=== PATIENT | male | born 1940 | race Caucasian/White ===

== ENCOUNTER → 2017-04-11 | Outpatient (CLI) | payer MEDICARE ==
[~2017-04-11] MED LIST: ACIP20TA19 PO; BETH25TA PO; CYMB30CA PO; DOXY100T PO; HYDR10SO PO; NAPR250T PO; TERA10CA3 PO
[2017-04-11 09:10] LABS: HDL CHOLESTEROL 31.5 MG/DL (40.0-60.0); INDIRECT BILIRUBIN 0.5 MG/DL (0.0-0.8); TOTAL BILIRUBIN ADULT 0.6 MG/DL (0.2-1.0)
== END ==
LOC: CLAB 07:27
PROVIDERS: ATTEND Family Medicine
DX: I10 Essential (primary) hypertension (principal); E78.2 Mixed hyperlipidemia; G45.9 Transient cerebral ischemic attack, unspecified; Z68.31 Body mass index [BMI] 31.0-31.9, adult; Z79.899 Other long term (current) drug therapy
CPT/HCPCS: 36415; 80061; 80076; 82550

== ENCOUNTER → 2017-05-05 | Outpatient (CLI) | payer MEDICARE ==
[~2017-05-05] MED LIST changes: -ACIP20TA19 PO; +ASPI325T PO; -BETH25TA PO; -CYMB30CA PO; -DOXY100T PO; +HYDR-3534 PO; -HYDR10SO PO; +LIPI10TA PO; +NEXI20CA PO; -TERA10CA3 PO
[2017-05-05 08:04] LABS: HDL CHOLESTEROL 30.8 MG/DL (40.0-60.0); INDIRECT BILIRUBIN 0.2 MG/DL (0.0-0.8); TOTAL BILIRUBIN ADULT 0.3 MG/DL (0.2-1.0)
== END ==
LOC: CLAB 07:09
PROVIDERS: ATTEND Internal Medicine Interventional Cardiology
DX: E78.2 Mixed hyperlipidemia (principal); Z79.899 Other long term (current) drug therapy
CPT/HCPCS: 36415; 80061; 80076

== ENCOUNTER → 2018-01-08 | Outpatient (CLI) | payer MEDICARE ==
[~2018-01-08] MED LIST changes: +ASPI-183 PO; -ASPI325T PO; -HYDR-3534 PO; +HYDR-3580 PO; -NAPR250T PO; +TAMS0.4C4 PO
[2018-01-08 07:35] LABS: BICARBONATE 26.5 MEQ/L (21.0-32.0); CREATININE 0.94 MG/DL (0.60-1.30)
[2018-01-08 07:39] LABS: CHOLESTEROL/ HDL RATIO 3.54 RATIO; HDL CHOLESTEROL 32.7 MG/DL (40.0-60.0)
== END ==
LOC: CLAB 06:46
PROVIDERS: ATTEND Family Medicine
DX: E78.2 Mixed hyperlipidemia (principal)
CPT/HCPCS: 36415; 80048; 80061